=== PATIENT | male | born 2000 | race Caucasian/White ===

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

== ENCOUNTER 2022-09-08 20:02 | Emergency (ER) | payer OTHER ==
[~2022-09-08] VITALS: Ht 160 cm; Wt 68.0 kg
[2022-09-08] MEDS ORDERED: AMOX/K CLAV875 M1 PO (22:05)
[2022-09-08 22:08] VITALS: BP 137/85
== END 2022-09-08 22:15 | disposition home or self-care (01) ==
LOC: ED 20:02
DX: S60.371A Other superficial bite of right thumb, initial encounter (principal); W54.0XXA Bitten by dog, initial encounter; S60.511A Abrasion of right hand, initial encounter; X58.XXXA Exposure to other specified factors, initial encounter